=== PATIENT | male | born 1965 | race Two or more races ===

== ENCOUNTER 2019-10-18 13:41 | Inpatient (IN) | payer MEDICAID, OTHER ==
[~2019-10-18] VITALS: Ht 190.5 cm; Wt 122.2 kg
[2019-10-18] MEDS ORDERED: SODIUM CHLORIDE 0.9% 1,000 ML IV ONE (14:06)
[2019-10-18] MEDS ORDERED: CLINDAMYCIN 600MG IV 50 ML IV ONE (14:15)
[2019-10-18 14:47] LABS: Basophils # (auto) 0.1 10 ^3/uL (0-0.2); Basophils % (auto) 1.1 % (0.0-2.0); Eosinophils # (auto) 0.1 10 ^3/uL (0-0.8); Eosinophils % (auto) 1.4 % (0.0-7.0); Hematocrit 47.1 % (41.0-53.0); Hemoglobin 15.9 g/dL (13.5-17.5); Lymphocytes # (auto) 1.6 10 ^3/uL (0.4-5.4); Lymphocytes % (auto) 15.9 % (10.0-50.0); Mean Corpuscular Hemoglobin 28.3 pg (28.0-32.0); Mean Corpuscular Hgb Conc. 33.7 g/dL (32.0-36.0); Mean Corpuscular Volume 83.9 fL (80.0-100.0); Monocytes # (auto) 0.6 10 ^3/uL (0-1.3); Monocytes % (auto) 6.2 % (0.0-12.0); Neutrophils # (auto) 7.7 10 ^3/uL (1.6-8.6); Neutrophils % (auto) 75.4 % (37.0-80.0); Nucleated Red Blood Cells % 0.4 %; Platelet Count (auto) 292 10^3/uL (140-450); Red Blood Cells 5.61 10^6/uL (4.5-5.90); White Blood Cell 10.2 10^3/uL (4.4-10.8)
[2019-10-18 15:02] LABS: Albumin 3.7 g/dL (3.4-5.0); BUN/Creatinine Ratio 19.2; Calcium 9.4 mg/dL (8.5-10.1); Potassium 4.2 mmol/L (3.5-5.1)
[2019-10-18 15:05] LABS: Bilirubin, Total 0.3 mg/dL (0.2-1.0); Total Protein 8.7 g/dL (6.4-8.2)
[2019-10-18] MEDS ORDERED: TEMAZEPAM 15 MG CAP PO PRN (15:45)
[2019-10-18] MEDS ORDERED: LACTULOSE 20Gm/30ML SOLN PO PRN (15:45)
[2019-10-18] MEDS ORDERED: levoFLOXacin 500MG 100 ML IV ONE (15:45)
[2019-10-18] MEDS ORDERED: PROMETHAZINE HCL 25 MG/ML 1ML IV PRN (15:45)
[2019-10-18] MEDS ORDERED: ACETAMINOPHEN 500 MG TAB PO PRN (15:45)
[2019-10-18] MEDS ORDERED: VANCOMYCIN 1GM/250ML 250 ML IV ONE (15:45)
[2019-10-18] MEDS ORDERED: DEXTROSE (50%) 50ML SYRG IV PRN (15:45)
[2019-10-18] MEDS ORDERED: KETOROLAC TROMETH 15 mg/ml 1ML VL IV PRN (15:45)
[2019-10-18] MEDS ORDERED: VANCOMYCIN PER PHARMACY 0 MG IV SCH (15:45)
[2019-10-18] MEDS: SODIUM CHLORIDE 0.9% 1,000 ML IV SCH (16:37)
[2019-10-18 17:00] VITALS: BP 146/74
[2019-10-18] MEDS: InsuLIN REG 1unit/0.01ml Soln (100units/ml) SC SCH ×2 (17:00→21:58)
[2019-10-18] MEDS: ACCU-CHEK COMFORT CURVE STRIP VI SCH ×2 (18:26→21:53)
--- NOTE | 2019-10-18 19:20 | NUR ---
opening note pt A&Ox4. pt denies any pain or discomfort. pt is English speaking, however speaks some arabic. Nurse aid assisting with translation. Respirations are even and nonlabored on room air. POC discussed with patient.
[2019-10-18 19:32] VITALS: BP 146/74
[2019-10-18 22:00] VITALS: BP 146/74
--- NOTE | 2019-10-19 01:25 | NUR ---
pt is resting in semi haji with HOB elevated at 30 degrees. respirations are even and non labored. pt denies pain or discomfort at this time. will continue to monitor.
[2019-10-19] MEDS: VANCOMYCIN 1GM/250ML 250 ML IV SCH ×3 (01:31→22:00)
[2019-10-19] MEDS: SODIUM CHLORIDE 0.9% 1,000 ML IV SCH ×3 (01:31→21:45)
[2019-10-19 05:00] VITALS: BP 143/89
[2019-10-19 06:09] LABS: Basophils # (auto) 0.1 10 ^3/uL (0-0.2); Basophils % (auto) 0.8 % (0.0-2.0); Eosinophils # (auto) 0.2 10 ^3/uL (0-0.8); Eosinophils % (auto) 3.1 % (0.0-7.0); Hematocrit 42.2 % (41.0-53.0); Hemoglobin 14.7 g/dL (13.5-17.5); Lymphocytes # (auto) 2.1 10 ^3/uL (0.4-5.4); Lymphocytes % (auto) 28.6 % (10.0-50.0); Mean Corpuscular Hemoglobin 28.9 pg (28.0-32.0); Mean Corpuscular Hgb Conc. 34.7 g/dL (32.0-36.0); Mean Corpuscular Volume 83.3 fL (80.0-100.0); Monocytes # (auto) 0.6 10 ^3/uL (0-1.3); Monocytes % (auto) 8.3 % (0.0-12.0); Neutrophils # (auto) 4.4 10 ^3/uL (1.6-8.6); Neutrophils % (auto) 59.2 % (37.0-80.0); Nucleated Red Blood Cells % 0.4 %; Platelet Count (auto) 251 10^3/uL (140-450); Red Blood Cells 5.07 10^6/uL (4.5-5.90); Red Cell Distribution Width 13.7 % (11.8-14.3); White Blood Cell 7.5 10^3/uL (4.4-10.8)
--- NOTE | 2019-10-19 06:25 | NUR ---
pain pt c/o pain at right lower extremity, about a 4/10 on pain scale. pt will be medicated appropriately.
[2019-10-19] MEDS: InsuLIN REG 1unit/0.01ml Soln (100units/ml) SC SCH ×4 (06:27→22:00)
[2019-10-19] MEDS: ACCU-CHEK COMFORT CURVE STRIP VI SCH ×4 (06:28→23:03)
[2019-10-19] MEDS: traMADol HCL 50 MG TAB PO PRN (06:29)
--- NOTE | 2019-10-19 06:48 | NUR ---
closing note pt is watching tv in semi fowlers with HOB at 30 degrees. respirations even and non labored. bed in low locked position, call light within reach.
--- NOTE | 2019-10-19 08:03 | NUR ---
OPENING SHIFT NOTE Assumed care of patient. PT is resting comfortably in bed. No S/S of distress/SOB. Instructed on POC and to call for assist PRN. Bed low and locked position with side rails up x2. Call light within reach. Will continue to monitor for changes Q1hr and PRN.
[2019-10-19 08:39] VITALS: BP 144/93
[2019-10-19] MEDS ORDERED: ENOXAPARIN SOD 40 MG/0.4 ML SYRINGE SC SCH (10:00)
[2019-10-19 10:36] LABS: INR 1.04 (0.9-1.15); Partial Thromboplastin Time 31.9 sec (23.64-32.05)
--- NOTE | 2019-10-19 11:00 | NUR ---
LOWER EXTREMITY DRAINAGE CULTURE SWABBED AND SENT TO LAB.
[2019-10-19] MEDS: levoFLOXacin 500MG 100 ML IV SCH (11:38)
[2019-10-19] MEDS ORDERED: LOSA-69 PO (11:59)
[2019-10-19] MEDS ORDERED: ATOR10TA52 PO (11:59)
[2019-10-19] MEDS ORDERED: ASPI325T4 PO (11:59)
[2019-10-19] MEDS ORDERED: METF-370 PO (11:59)
--- NOTE | 2019-10-19 12:00 | NUR ---
UPDATED PT'S MED REC
[2019-10-19 12:41] VITALS: BP 122/98
[2019-10-19] MEDS: CLINDAMYCIN 300MG IV 50 ML IV SCH ×2 (13:39→23:03)
--- NOTE | 2019-10-19 16:35 | NUR ---
WOUND CARE NOTE: IN TO SEE PATIENT AT THIS TIME PER WOUND CARE CONSULT REQUEST. PATIENT ADMITTED TO [facility] WITH DIAGNOSIS OF RIGHT LEG CELLULITIS. CURRENT [facility] SCORE IS 14. PATIENT CAN SELF/TURN-REPOSITION SELF. HE IS AMBULATORY. PATIENT NOTED HIS RIGHT CROWLEY SWELLING UP AND TURNING RED APPROXIMATELY ONE WEEK AGO. BEDSIDE NURSE PHOTOGRAPHED RLE UPON ADMIT PER PROTOCOL. PATIENT NOTED TO HAVE A WEEPING BLISTER TO THE RIGHT ANTERIOR CROWLEY, WITH ERYTHEMA, EDEMA NOTED. SURGICAL CONSULT ORDERED/PENDING. WOUND CULTURE TAKEN BY BEDSIDE NURSE AND SENT OFF TO LAB FOR PROCESSING, AND IS PENDING AT THIS TIME. PATIENT'S RIGHT ANTERIOR CROWLEY IS VERY TENDER TO THE TOUCH.SCANT WEEPING NOTED WITH SEROUS DRAINAGE WEEPING FROM SERUM FILLED BLISTER. APPLIED OPTIFOAM GENTLE DRESSING TO COVER AND PROTECT. ELEVATED RLE UP ONTO PILLOW, ELEVATED KNEE GATCH ON BED WELL, TO FURTHER ELEVATE RLE. RECOMMEND: DAILY/PRN DRESSING CHANGE TO RLE WEEPING CELLULITIS, ELEVATION OF RLE FOR EDEMA CONTROL, SKIN/WOUND CARE PLAN, DIETARY CONSULT, CONTINUED MONITORING BY WOUND CARE TEAM. Addendum: 10/19/19 at 1746 by Vilma Fermin RN Amended: Links added.
[2019-10-19 17:00] VITALS: BP 139/99
[2019-10-19] MEDS ORDERED: KETOROLAC TROMETH 30 MG/ML 1ML VIAL IV PRN (18:00)
--- NOTE | 2019-10-19 19:30 | NUR ---
Opening Shift Note Assumed care of patient, awake and alert. No S/S of distress/SOB or pain. Bed is locked in lowest position with call light within reach. Instructed on POC and to call for assist PRN, will continue to monitor for changes Q1hr and PRN.
[2019-10-19 22:00] VITALS: BP 131/93
[2019-10-20 05:00] VITALS: BP 122/86
[2019-10-20] MEDS: CLINDAMYCIN 300MG IV 50 ML IV SCH ×3 (05:12→21:00)
[2019-10-20 05:21] LABS: Basophils # (auto) 0.1 10 ^3/uL (0-0.2); Basophils % (auto) 1.1 % (0.0-2.0); Eosinophils # (auto) 0.3 10 ^3/uL (0-0.8); Hematocrit 43.7 % (41.0-53.0); Hemoglobin 15.1 g/dL (13.5-17.5); Lymphocytes # (auto) 1.7 10 ^3/uL (0.4-5.4); Lymphocytes % (auto) 27.3 % (10.0-50.0); Mean Corpuscular Hemoglobin 28.8 pg (28.0-32.0); Mean Corpuscular Hgb Conc. 34.6 g/dL (32.0-36.0); Mean Corpuscular Volume 83.1 fL (80.0-100.0); Monocytes # (auto) 0.6 10 ^3/uL (0-1.3); Monocytes % (auto) 9.6 % (0.0-12.0); Neutrophils # (auto) 3.7 10 ^3/uL (1.6-8.6); Nucleated Red Blood Cells % 0.2 %; Platelet Count (auto) 263 10^3/uL (140-450); Red Blood Cells 5.26 10^6/uL (4.5-5.90); Red Cell Distribution Width 13.9 % (11.8-14.3); White Blood Cell 6.4 10^3/uL (4.4-10.8)
[2019-10-20 05:40] LABS: Calcium 8.9 mg/dL (8.5-10.1)
[2019-10-20 05:44] LABS: BUN/Creatinine Ratio 16.1
[2019-10-20] MEDS: ACCU-CHEK COMFORT CURVE STRIP VI SCH ×4 (06:23→22:00)
[2019-10-20] MEDS: InsuLIN REG 1unit/0.01ml Soln (100units/ml) SC SCH ×4 (06:23→22:00)
--- NOTE | 2019-10-20 08:04 | NUR ---
OPENING SHIFT NOTE Resumed care of patient. PT is awake and alert. Eating breakfast comfortably in bed. No S/S of distress or SOB. Instructed on POC and to call for assist PRN. Bed low and in locked position with side rails up x2. Call light within reach. Will continue to monitor for changes Q1hr and PRN.
[2019-10-20] MEDS: VANCOMYCIN 1GM/250ML 250 ML IV SCH ×2 (08:12→18:15)
[2019-10-20] MEDS: SODIUM CHLORIDE 0.9% 1,000 ML IV SCH ×2 (08:12→17:11)
[2019-10-20 09:00] VITALS: BP 149/93
[2019-10-20] MEDS: levoFLOXacin 500MG 100 ML IV SCH (09:30)
[2019-10-20 13:00] VITALS: BP 140/91
--- NOTE | 2019-10-20 13:57 | NUR ---
DAILY DRESSING CHANGE PERFORMED PER WOUND CARE NURSE'S INSTRUCTIONS. OPTIFOAM APPLIED TO RIGHT LOWER EXTREMITY.
--- NOTE | 2019-10-20 14:51 | NUR ---
NUTRITION CONSULT/ ASSESSMENT NOTES Please refer to link notes of nutrition screen form filed under the intervention section of the plan of care for further details. Est. Energy Needs: 2167-6809 kcal (17-20 kcal/kg BW). Est. Protein Needs: 98-118 gms/day (1.0-1.2 gms/kg Adj.BW). Will continue to monitor pertinent labs and reassess nutrient need prn Addendum: 10/20/19 at [address] Amended: Links added.
[2019-10-20 17:00] VITALS: BP 138/93
--- NOTE | 2019-10-20 19:05 | NUR ---
Opening Shift Note Assumed care of patient, awake and alert. No S/S of distress/SOB or pain. The patient's bed is locked in the lowest position with call light within reach. Instructed on POC and to call for assist PRN, will continue to monitor for changes Q1hr and PRN.
--- NOTE | 2019-10-20 21:45 | NUR ---
IV removal Patient noticed that the IV started to leak fluid. IV removed with clean sterile technique, catheter fully intact. Pressure dressing applied to site. Patient tolerated well.
--- NOTE | 2019-10-20 21:55 | NUR ---
IV insertion IV access obtained, via clean sterile technique by inserting 22 gauge catheter at R AC after 1 attempt(s). IV secured properly. No trauma to site. Patient tolerated well.
[2019-10-20 22:00] VITALS: BP_SYST 136; BP_SYST 137; BP_DIAS 76; BP_DIAS 79
[2019-10-21] MEDS: SODIUM CHLORIDE 0.9% 1,000 ML IV SCH ×3 (03:49→23:45)
[2019-10-21] MEDS: VANCOMYCIN 1GM/250ML 250 ML IV SCH ×2 (04:00→13:52)
[2019-10-21 04:54] VITALS: BP 137/85
[2019-10-21] MEDS: CLINDAMYCIN 300MG IV 50 ML IV SCH ×3 (05:00→21:25)
[2019-10-21] MEDS: ACCU-CHEK COMFORT CURVE STRIP VI SCH ×4 (06:58→21:25)
[2019-10-21] MEDS: InsuLIN REG 1unit/0.01ml Soln (100units/ml) SC SCH ×4 (06:58→21:31)
--- NOTE | 2019-10-21 08:00 | NUR ---
Opening Shift Note Assumed care of patient, awake, alert, and oriented. No S/S of distress/SOB or pain. Bed in lowest/locked position, bed rails up x2, call light within reach. Instructed on POC and to call for assist PRN. Will continue to monitor for changes Q1hr and PRN.
[2019-10-21 09:00] VITALS: BP 137/84
[2019-10-21] MEDS: levoFLOXacin 500MG 100 ML IV SCH (09:25)
[2019-10-21 09:43] LABS: Basophils # (auto) 0.1 10 ^3/uL (0-0.2); Basophils % (auto) 0.9 % (0.0-2.0); Eosinophils # (auto) 0.3 10 ^3/uL (0-0.8); Eosinophils % (auto) 4.2 % (0.0-7.0); Hematocrit 44.4 % (41.0-53.0); Lymphocytes # (auto) 1.6 10 ^3/uL (0.4-5.4); Lymphocytes % (auto) 25.3 % (10.0-50.0); Mean Corpuscular Hemoglobin 28.3 pg (28.0-32.0); Mean Corpuscular Hgb Conc. 33.8 g/dL (32.0-36.0); Mean Corpuscular Volume 83.7 fL (80.0-100.0); Monocytes # (auto) 0.5 10 ^3/uL (0-1.3); Monocytes % (auto) 7.7 % (0.0-12.0); Neutrophils # (auto) 3.8 10 ^3/uL (1.6-8.6); Neutrophils % (auto) 61.9 % (37.0-80.0); Nucleated Red Blood Cells % 0.1 %; Platelet Count (auto) 250 10^3/uL (140-450); Red Cell Distribution Width 13.4 % (11.8-14.3); White Blood Cell 6.1 10^3/uL (4.4-10.8)
[2019-10-21 10:02] LABS: BUN/Creatinine Ratio 13.1; Calcium 8.6 mg/dL (8.5-10.1)
[2019-10-21 13:00] VITALS: BP 138/84
[2019-10-21 17:00] VITALS: BP 127/86
[2019-10-21 22:11] VITALS: BP 136/84
[2019-10-22] MEDS: VANCOMYCIN 1GM/250ML 250 ML IV SCH ×2 (01:16→10:12)
[2019-10-22] MEDS: CLINDAMYCIN 300MG IV 50 ML IV SCH (04:37)
[2019-10-22 05:16] VITALS: BP 129/73
[2019-10-22 05:47] LABS: Basophils # (auto) 0.1 10 ^3/uL (0-0.2); Basophils % (auto) 1.1 % (0.0-2.0); Eosinophils # (auto) 0.3 10 ^3/uL (0-0.8); Eosinophils % (auto) 4.7 % (0.0-7.0); Hematocrit 46.6 % (41.0-53.0); Hemoglobin 16.1 g/dL (13.5-17.5); Lymphocytes # (auto) 2.2 10 ^3/uL (0.4-5.4); Lymphocytes % (auto) 29.7 % (10.0-50.0); Mean Corpuscular Hemoglobin 28.7 pg (28.0-32.0); Mean Corpuscular Hgb Conc. 34.6 g/dL (32.0-36.0); Mean Corpuscular Volume 82.8 fL (80.0-100.0); Monocytes # (auto) 0.6 10 ^3/uL (0-1.3); Monocytes % (auto) 8.3 % (0.0-12.0); Neutrophils # (auto) 4.1 10 ^3/uL (1.6-8.6); Neutrophils % (auto) 56.2 % (37.0-80.0); Nucleated Red Blood Cells % 0.3 %; Platelet Count (auto) 269 10^3/uL (140-450); Red Blood Cells 5.63 10^6/uL (4.5-5.90); Red Cell Distribution Width 13.6 % (11.8-14.3); White Blood Cell 7.3 10^3/uL (4.4-10.8)
[2019-10-22 06:01] LABS: Potassium 3.7 mmol/L (3.5-5.1)
[2019-10-22 06:05] LABS: BUN/Creatinine Ratio 16.1; Calcium 8.5 mg/dL (8.5-10.1)
[2019-10-22] MEDS: ACCU-CHEK COMFORT CURVE STRIP VI SCH ×4 (06:07→21:27)
[2019-10-22] MEDS: InsuLIN REG 1unit/0.01ml Soln (100units/ml) SC SCH ×4 (06:17→21:34)
--- NOTE | 2019-10-22 07:35 | NUR ---
Opening Shift Note Assumed care of patient, awake and alert. No S/S of distress/SOB or pain reported at this time. Instructed on POC and to call for assist PRN, dressing to right anterior grant cdi, patient cane at bedside, call light within reach, instructed to call for assist, patient verbalized understanding, will continue to monitor for changes Q1hr and PRN.
[2019-10-22 08:05] VITALS: BP 116/70
[2019-10-22 09:00] VITALS: BP 116/70
[2019-10-22] MEDS: SODIUM CHLORIDE 0.9% 1,000 ML IV SCH ×2 (10:13→14:50)
[2019-10-22] MEDS: levoFLOXacin 750MG 150 ML IV SCH (10:13)
--- NOTE | 2019-10-22 11:35 | NUR ---
/DR OLIVIER AT BEDSIDE DISCUSSING POC, NEW ORDERS RECEIVED, RBO, CONT CARE
[2019-10-22] MEDS: traMADol HCL 50 MG TAB PO PRN (12:04)
[2019-10-22 13:00] VITALS: BP 142/91
--- NOTE | 2019-10-22 16:00 | NUR ---
DRESSING CHANGE PER WOUND CARE ORDERS, PT TOLERATED WELL, CONT CARE
[2019-10-22 16:23] VITALS: BP 126/90
[2019-10-22 21:18] VITALS: BP 129/73
[2019-10-23 04:54] VITALS: BP 128/87
[2019-10-23] MEDS: ACCU-CHEK COMFORT CURVE STRIP VI SCH ×2 (05:44→11:38)
[2019-10-23] MEDS: InsuLIN REG 1unit/0.01ml Soln (100units/ml) SC SCH ×2 (05:50→11:38)
[2019-10-23 06:14] LABS: Cholesterol 154 mg/dL (< 200); HDL Cholesterol 27 mg/dL (40-59); LDL Cholesterol 113 mg/dL (< 100); Triglycerides 90 mg/dL (< 150)
--- NOTE | 2019-10-23 07:30 | NUR ---
Opening Shift Note Assumed care of patient, awake, alert, and oriented. No S/S of distress/SOB or pain. Updated on POC and instructed to call for assistance PRN, patient verbalized understanding. Bed locked in lowest position, bed rails up x2, call light within reach. Will continue to monitor for changes Q1hr and PRN.
[2019-10-23] MEDS: SODIUM CHLORIDE 0.9% 1,000 ML IV SCH (08:17)
[2019-10-23 09:00] VITALS: BP 140/87
[2019-10-23] MEDS: levoFLOXacin 750MG 150 ML IV SCH (10:25)
[2019-10-23] MEDS ORDERED: LEVO500T21 PO (11:29)
--- NOTE | 2019-10-23 12:53 | NUR ---
assessment Patient is a 54 year old Gren[place] speaking male. Per patients daughter Blank prior to admission patient lived home with family and was independent. Patient has a cane for home use. Per Blank patient came to ER for leg swelling and was admitted. Per Blank patient will return home on discharge and she will transport patient home. Patient may benefit from home health on discharge. Patient does not have a POA and advanced directive. I have offered patient information on POA and advanced directives. I informed the patient the advantages and benefits of having an Advanced Directive. Patient verbalized understanding and agreed to discharge plan home. Addendum: 10/23/19 at 1257 by Dana GROVER Amended: Links added.
[2019-10-23 12:56] VITALS: BP 137/80
[2019-10-23 13:00] VITALS: BP 137/80
--- NOTE | 2019-10-23 14:15 | NUR ---
Discharge home Discharge instructions given as ordered. Photography Colorist at bedside to discuss discharge information, Niki LIZARRAGA. Encourage to follow up with PMD as instructed. All questions and concerns addressed. Patient verbalized understanding. Medication reconciliation form completed and copy given to patient. IV removed with catheter intact, pressure dressing applied. Patient taken to vehicle via wheelchair with all personal belongings, accompanied by staff. No distress noted at time of departure.
[2019-10-23] MEDS ORDERED: ceFAZolin 2 GM in D5W 5% 100 ML IV ONE (15:15)
[2019-10-23] MEDS ORDERED: ceFAZolin 2 GM in D5W 5% 100 ML IV SCH (22:00)
== END 2019-10-23 14:15 | disposition home or self-care (01) | DRG 720 ==
LOC: ER 13:41 → OVERFLOW 13:42 → WEST WING 17:37
PROVIDERS: ADMIT Internal Medicine; ATTEND Internal Medicine
DX: A41.9 Sepsis, unspecified organism (principal); E11.621 Type 2 diabetes mellitus with foot ulcer; L03.115 Cellulitis of right lower limb; B95.61 Methicillin susceptible Staphylococcus aureus infection as the cause of diseases classified elsewhere; E66.9 Obesity, unspecified; E78.5 Hyperlipidemia, unspecified; I10 Essential (primary) hypertension; M20.10 Hallux valgus (acquired), unspecified foot; Z96.651 Presence of right artificial knee joint; L97.519 Non-pressure chronic ulcer of other part of right foot with unspecified severity; Z80.0 Family history of malignant neoplasm of digestive organs; Z68.34 Body mass index [BMI] 34.0-34.9, adult
CPT/HCPCS: 36415; 73590; 73700; 73718; 76881; 80048; 80053; 80061; 80202; 82565; 82962; 83036; 83605; 84443; 85025; 85610; 85652; 85730; 87077; 87186; 87205; 93971; 96365; 96367; G0378; J0690; J1815; J1885; J1956; J3490; J7060